=== PATIENT | female | born 2000 | race Caucasian/White ===

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

== ENCOUNTER 2020-07-29 16:55 | Emergency (ER) | payer OTHER ==
[2020-07-29 17:07] VITALS: BP 111/57; PULSE 69; TEMP 97.2; BMI 23.8
[2020-07-29] MEDS ORDERED: IBUPROFEN 600 MG TABLET (FP) PO ONE (17:43)
[2020-07-29] MEDS ORDERED: IBUPROFEN 400 MG TABLET (FP) PO ONE (17:45)
== END 2020-07-29 19:18 | disposition home or self-care (01) ==
LOC: JERFT 16:55
DX: S83.92XA Sprain of unspecified site of left knee, initial encounter (principal)
CPT/HCPCS: 73562-TC-LT-FY; 99283-25

== ENCOUNTER 2020-08-19 16:40 | Emergency (ER) | payer OTHER ==
[2020-08-19 16:53] VITALS: BP 103/69; PULSE 68; TEMP 97.6; BMI 23.8
[2020-08-19 18:16] LABS: PH,URINE 5.5 (5.0-8.0); URINE APPEARANCE CLEAR; URINE BILIRUBIN NEGATIVE (NEGATIVE); URINE COLOR YELLOW; URINE GLUCOSE (UA) NEGATIVE (NEGATIVE); URINE KETONE NEGATIVE (NEGATIVE); URINE LEUK ESTERASE NEGATIVE (NEGATIVE); URINE NITRITE NEGATIVE (NEGATIVE); URINE PROTEIN NEGATIVE (NEGATIVE); URINE UROBILINOGEN 0.2 mg/dL (0.2-1.0)
[2020-08-19 18:19] LABS: HCG,QUALITATIVE URINE Negative
[2020-08-19] MEDS ORDERED: KETOROLAC TROMETHAMINE 30 MG/1 ML VIAL IM ONE (18:22)
[2020-08-19] MEDS ORDERED: LIDOCAINE 5% TOPICAL PATCH TP ONE (18:23)
[2020-08-19] MEDS ORDERED: KETOROLAC TROMETHAMINE 30 MG/1 ML VIAL ONE (18:23)
[2020-08-19] MEDS ORDERED: LIDOCAINE 5% TOPICAL PATCH ONE (18:23)
[2020-08-19] MEDS ORDERED: LIDOCAINE PATCH REMOVAL MC SCH (22:00)
== END 2020-08-19 18:29 | disposition home or self-care (01) ==
LOC: JER 16:40 → JERFT 16:40
PROC: 3E0233Z Introduction of Anti-inflammatory into Muscle, Percutaneous Approach (ICD-10-PCS; principal; 2020-08-19)
DX: M54.42 Lumbago with sciatica, left side (principal)
CPT/HCPCS: 81003; 84703; 87077; 87086; 99284-25

== ENCOUNTER 2021-12-29 07:47 | Emergency (ER) | payer OTHER ==
[2021-12-29 08:00] VITALS: RESP 16; BMI 25.6
[2021-12-29] MEDS ORDERED: DEXTROSE 5%-LACTATED RINGERS 500 ML IV ONE ×2 (08:00→08:30)
[2021-12-29] MEDS ORDERED: ACETAMINOPHEN 1000 MG/100 ML BAG IVPB ONE (08:00)
[2021-12-29] MEDS ORDERED: ACETAMINOPHEN INJECTION 100 ML IVPB ONE (08:45)
[2021-12-29 09:03] LABS: BASO % 0.3 % (0-2.0); EOS % 0.6 % (0-4.5); HEMATOCRIT 32.8 % (32.4-45.2); HEMOGLOBIN 11.7 GM/dL (10.7-15.3); LYMPH % 23.3 % (8-40); MCH 30.5 pg (25.7-33.7); MCHC 35.6 g/dl (32.0-36.0); MEAN CELL VOLUME 85.6 fl (80-96); MEAN PLT VOLUME 7.9 fl (7.5-11.1); MONO % 4.7 % (3.8-10.2); NEUT % 71.1 % (42.8-82.8); PLATELET COUNT 253 10^3/uL (134-434); RBC 3.84 M/mm3 (3.60-5.2); RDW 14.5 % (11.6-15.6); WHITE BLOOD COUNT 6.4 K/mm3 (4.0-10.0)
[2021-12-29 09:22] LABS: ALBUMIN 2.8 g/dl (3.4-5.0); BLOOD UREA NITROGEN 5.2 mg/dL (7-18); CALCIUM 8.2 mg/dL (8.5-10.1)
[2021-12-29 09:25] LABS: CREATININE 0.4 mg/dL (0.55-1.3)
[2021-12-29 09:27] LABS: BILIRUBIN,TOTAL 0.2 mg/dL (0.2-1); TOT PROT 6.2 g/dl (6.4-8.2)
[2021-12-29 09:44] LABS: URINE APPEARANCE CLEAR; URINE BILIRUBIN NEGATIVE (NEGATIVE); URINE COLOR YELLOW; URINE GLUCOSE (UA) NEGATIVE (NEGATIVE); URINE KETONE NEGATIVE (NEGATIVE); URINE LEUK ESTERASE NEGATIVE (NEGATIVE); URINE NITRITE NEGATIVE (NEGATIVE); URINE PROTEIN NEGATIVE (NEGATIVE); URINE UROBILINOGEN 0.2 mg/dL (0.2-1.0)
[2021-12-29 10:53] VITALS: PULSE 81; TEMP 97.8
[2021-12-29 11:23] VITALS: BP 114/53
== END 2021-12-29 18:27 | disposition home or self-care (01) ==
LOC: JER 07:47
PROC: 3E033NZ Introduction of Analgesics, Hypnotics, Sedatives into Peripheral Vein, Percutaneous Approach (ICD-10-PCS; principal; 2021-12-29)
PROC: 3E0337Z Introduction of Electrolytic and Water Balance Substance into Peripheral Vein, Percutaneous Approach (ICD-10-PCS; 2021-12-29)
PROC: 3E0337Z Introduction of Electrolytic and Water Balance Substance into Peripheral Vein, Percutaneous Approach (ICD-10-PCS; 2021-12-29)
PROC: 3E0337Z Introduction of Electrolytic and Water Balance Substance into Peripheral Vein, Percutaneous Approach (ICD-10-PCS; 2021-12-29)
PROC: 3E0337Z Introduction of Electrolytic and Water Balance Substance into Peripheral Vein, Percutaneous Approach (ICD-10-PCS; 2021-12-29)
PROC: 3E0337Z Introduction of Electrolytic and Water Balance Substance into Peripheral Vein, Percutaneous Approach (ICD-10-PCS; 2021-12-29)
DX: O26.892 Other specified pregnancy related conditions, second trimester (principal); R10.9 Unspecified abdominal pain; Z3A.24 24 weeks gestation of pregnancy
CPT/HCPCS: 36415; 76775-TC; 76817-TC; 80053; 81003; 85025; 87077; 87086; 99284-25

== ENCOUNTER 2022-04-10 21:50 | Observation (INO) | payer OTHER ==
[2022-04-10 21:46] LABS: BASO % 0.4 % (0-2.0); EOS % 0.3 % (0-4.5); HEMATOCRIT 33.8 % (32.4-45.2); HEMOGLOBIN 11.3 GM/dL (10.7-15.3); LYMPH % 15.5 % (8-40); MCH 28.8 pg (25.7-33.7); MCHC 33.5 g/dl (32.0-36.0); MEAN CELL VOLUME 85.8 fl (80-96); MONO % 5.2 % (3.8-10.2); NEUT % 78.6 % (42.8-82.8); PLATELET COUNT 218 10^3/uL (134-434); RBC 3.94 M/mm3 (3.60-5.2); RDW 17.2 % (11.6-15.6); WHITE BLOOD COUNT 9.5 K/mm3 (4.0-10.0)
[~2022-04-10 21:50] MED LIST: ACETAMINOPHEN INJECTION 100 ML IVPB ONE
[2022-04-10 21:54] LABS: INR 0.91 (0.83-1.09); PROTHROMBIN TIME (PATIENT) 10.5 SEC (9.7-13.0)
[2022-04-10 21:57] LABS: ACTIVATED PTT 26.5 SECONDS (25.2-36.5)
[2022-04-10] MEDS ORDERED: ACETAMINOPHEN 1000 MG/100 ML BAG IVPB ONE (22:00)
[2022-04-10] MEDS ORDERED: ELECTROLYTE-148 SOLN 1,000 ML IV ONE (22:00)
[2022-04-10 22:07] LABS: ALBUMIN 2.6 g/dl (3.4-5.0); BLOOD UREA NITROGEN 8.2 mg/dL (7-18); CALCIUM 7.9 mg/dL (8.5-10.1)
[2022-04-10 22:11] LABS: CREATININE 0.5 mg/dL (0.55-1.3)
[2022-04-10 22:12] LABS: BILIRUBIN,TOTAL 0.2 mg/dL (0.2-1); TOT PROT 5.9 g/dl (6.4-8.2)
[2022-04-10] MEDS ORDERED: ELECTROLYTE-148 SOLN 1,000 ML IV SCH (22:30)
[2022-04-10] MEDS: OSELTAMIVIR PHOSPHATE 75 MG CAPSULE PO SCH (23:00)
[2022-04-11 01:47] VITALS: BMI 28.1
[2022-04-11] MEDS ORDERED: ACETAMINOPHEN 325 MG TABLET (FP) PO PRN (04:00)
[2022-04-11] MEDS: OSELTAMIVIR PHOSPHATE 75 MG CAPSULE PO SCH (10:26)
[2022-04-11 15:02] VITALS: BP 104/54; PULSE 74; RESP 18; TEMP 97.8
== END 2022-04-11 16:10 | disposition home or self-care (01) ==
LOC: UNDOADMIN 21:50 → JLDR 21:50 → JDEL 21:50 → JLDR 21:51
PROVIDERS: ADMIT Student in an Organized Health Care Education/Training Program; ATTEND Student in an Organized Health Care Education/Training Program
CPT/HCPCS: 0241U-QW; 36415; 80053; 85025; 85610; 85730; 86780; 86850; 86900; 86901; 87040; 96365; 96366; 96375; G0378

== ENCOUNTER 2022-04-16 22:10 | Inpatient (IN) | payer OTHER ==
[2022-04-16] MEDS ORDERED: AMPICILLIN SODIUM 2 GM VIAL ONE (22:32)
[2022-04-16] MEDS ORDERED: AMPICILLIN - 2 GM in SODIUM CHLORIDE 100 ML IVPB ONE (22:34)
[2022-04-16] MEDS ORDERED: ELECTROLYTE-148 SOLN 1,000 ML IV SCH (22:45)
[2022-04-16 23:08] LABS: BASO % 0.2 % (0-2.0); EOS % 0.5 % (0-4.5); HEMATOCRIT 33.8 % (32.4-45.2); HEMOGLOBIN 11.3 GM/dL (10.7-15.3); LYMPH % 20.5 % (8-40); MCH 28.8 pg (25.7-33.7); MCHC 33.6 g/dl (32.0-36.0); MEAN CELL VOLUME 85.7 fl (80-96); MEAN PLT VOLUME 8.2 fl (7.5-11.1); MONO % 5.9 % (3.8-10.2); NEUT % 72.9 % (42.8-82.8); PLATELET COUNT 290 10^3/uL (134-434); RBC 3.94 M/mm3 (3.60-5.2); RDW 17.2 % (11.6-15.6); WHITE BLOOD COUNT 8.7 K/mm3 (4.0-10.0)
[2022-04-16 23:13] LABS: INR 0.95 (0.83-1.09); PROTHROMBIN TIME (PATIENT) 10.9 SEC (9.7-13.0)
[2022-04-16 23:16] LABS: ACTIVATED PTT 27.1 SECONDS (25.2-36.5)
[2022-04-16 23:29] LABS: CALCIUM 8.2 mg/dL (8.5-10.1)
[2022-04-16 23:30] LABS: BLOOD UREA NITROGEN 9.5 mg/dL (7-18)
[2022-04-16 23:33] LABS: CREATININE 0.6 mg/dL (0.55-1.3)
[2022-04-16] MEDS ORDERED: FENTANYL/BUPIVACAINE/NS/PF - PCEA - 50 ML DISP.SYRIN EP ONE (23:33)
[2022-04-16] MEDS ORDERED: BUPIVACAINE HCL/PF 0.25% (2.5MG/ML) 10 ML VIAL ONE (23:34)
[2022-04-17] MEDS ORDERED: NALOXONE HCL 0.4 MG/ML VIAL IVPUSH PRN (00:06)
[2022-04-17] MEDS ORDERED: FENTANYL/BUPIVACAINE/NS/PF - PCEA - 50 ML DISP.SYRIN EP SCH ×2 (00:15→00:44)
[2022-04-17 00:21] VITALS: BMI 26.2
[2022-04-17 00:32] LABS: HIV INTERPRETATION NEGATIVE (NEGATIVE)
[2022-04-17] MEDS ORDERED: AMPICILLIN SODIUM 1 GM VIAL ONE ×2 (01:56→06:09)
[2022-04-17] MEDS: AMPICILLIN - 1 GM in SODIUM CHLORIDE 100 ML IVPB SCH ×4 (02:05→15:22)
[2022-04-17] MEDS ORDERED: FENTANYL/BUPIVACAINE/NS/PF - PCEA - 50 ML DISP.SYRIN EP ONE (03:56)
[2022-04-17] MEDS ORDERED: OXYTOCIN 20 UNITS in 0.9% NS 20 UNIT/1,000 ML INFUS.BAG IV ONE ×2 (07:13→08:53)
[2022-04-17] MEDS ORDERED: BISACODYL 10 MG SUPP.RECT RC PRN (07:44)
[2022-04-17] MEDS ORDERED: WITCH HAZEL 50% (TUCKS) 40 PAD/JAR PAD TP PRN (07:44)
[2022-04-17] MEDS ORDERED: BENZOCAINE 28 GM HEMORRHOIDAL OINTMENT TP PRN (07:44)
[2022-04-17] MEDS ORDERED: METHYLERGONOVINE MALEATE 0.2 MG/1 ML AMP IM PRN (07:44)
[2022-04-17] MEDS ORDERED: ACETAMINOPHEN 325 MG TABLET (FP) PO PRN (07:44)
[2022-04-17] MEDS: OXYTOCIN 20 UNITS in 0.9% NS 20 UNIT/1,000 ML INFUS.BAG IV SCH ×2 (07:45→09:02)
[2022-04-17] MEDS: IBUPROFEN 600 MG TABLET (FP) PO PRN (09:01)
[2022-04-17] MEDS ORDERED: IBUPROFEN 600 MG TABLET (FP) PO ONE (09:02)
[2022-04-17] MEDS: PRENATAL VITAMINS W/ FOLIC ACID TABLET (FP) PO SCH (10:22)
[2022-04-17 20:46] VITALS: RESP 18
[2022-04-18] MEDS: IBUPROFEN 600 MG TABLET (FP) PO PRN ×2 (01:21→20:05)
[2022-04-18] MEDS: PRENATAL VITAMINS W/ FOLIC ACID TABLET (FP) PO SCH (09:56)
[2022-04-18 10:37] LABS: BASO % 0.5 % (0-2.0); EOS % 0.8 % (0-4.5); HEMATOCRIT 30.8 % (32.4-45.2); HEMOGLOBIN 10.4 GM/dL (10.7-15.3); LYMPH % 27.9 % (8-40); MCH 29.2 pg (25.7-33.7); MCHC 33.7 g/dl (32.0-36.0); MEAN CELL VOLUME 86.6 fl (80-96); MEAN PLT VOLUME 8.4 fl (7.5-11.1); NEUT % 65.8 % (42.8-82.8); PLATELET COUNT 274 10^3/uL (134-434); RBC 3.56 M/mm3 (3.60-5.2); RDW 17.2 % (11.6-15.6); WHITE BLOOD COUNT 9.1 K/mm3 (4.0-10.0)
[2022-04-18] MEDS ORDERED: FLU VACC QS2022-23(6MOS UP)/PF 60 MCG/0.5 ML SYRINGE IM ONE (12:00)
[2022-04-18] MEDS ORDERED: SENNOSIDES/DOCUSATE COMBO (SENNA PLUS) TABLET (UD) PO PRN (22:00)
[2022-04-19] MEDS: IBUPROFEN 600 MG TABLET (FP) PO PRN (06:18)
[2022-04-19 08:39] VITALS: BP 120/71; PULSE 66; TEMP 98.6
[2022-04-19] MEDS: PRENATAL VITAMINS W/ FOLIC ACID TABLET (FP) PO SCH (10:06)
== END 2022-04-19 12:20 | disposition home or self-care (01) | DRG 560 ==
LOC: JLDR 22:10 → J3W 04-17 09:54
PROVIDERS: ADMIT Obstetrics & Gynecology; ATTEND Obstetrics & Gynecology
PROC: 10E0XZZ Delivery of Products of Conception, External Approach (ICD-10-PCS; principal; 2022-04-17)
PROC: 10907ZC Drainage of Amniotic Fluid, Therapeutic from Products of Conception, Via Natural or Artificial Opening (ICD-10-PCS; 2022-04-17)
DX: O99.824 Streptococcus B carrier state complicating childbirth (principal); Z3A.39 39 weeks gestation of pregnancy; Z37.0 Single live birth
CPT/HCPCS: 36415; 59409; 80048; 85025; 85610; 85730; 86780; 86850; 86900; 86901; 87389; C9803-CS; G0008; Q2036; U0003; U0005

== ENCOUNTER 2022-05-11 14:27 | Emergency (ER) | payer OTHER ==
[2022-05-11 14:32] VITALS: BP 121/84; PULSE 99; RESP 18; BMI 25.6
[2022-05-11] MEDS ORDERED: ACETAMINOPHEN 1000 MG/100 ML BAG IVPB ONE (16:24)
[2022-05-11] MEDS ORDERED: ACETAMINOPHEN INJECTION 100 ML IVPB ONE (16:31)
[2022-05-11 17:57] LABS: BASO % 0.5 % (0-2.0); EOS % 0.1 % (0-4.5); HEMOGLOBIN 12.3 GM/dL (10.7-15.3); LYMPH % 12.4 % (8-40); MCHC 32.3 g/dl (32.0-36.0); MEAN CELL VOLUME 86.5 fl (80-96); MEAN PLT VOLUME 8.5 fl (7.5-11.1); MONO % 7.1 % (3.8-10.2); NEUT % 79.9 % (42.8-82.8); PLATELET COUNT 262 10^3/uL (134-434); RBC 4.39 M/mm3 (3.60-5.2); RDW 16.4 % (11.6-15.6); WHITE BLOOD COUNT 12.5 K/mm3 (4.0-10.0)
[2022-05-11 18:20] LABS: CALCIUM 8.5 mg/dL (8.5-10.1)
[2022-05-11 18:22] LABS: ALBUMIN 3.4 g/dl (3.4-5.0); BLOOD UREA NITROGEN 9.8 mg/dL (7-18)
[2022-05-11 18:24] LABS: CREATININE 0.6 mg/dL (0.55-1.3)
[2022-05-11 18:27] LABS: BILIRUBIN,TOTAL 0.3 mg/dL (0.2-1); TOT PROT 7.2 g/dl (6.4-8.2)
[2022-05-11] MEDS ORDERED: CEPHALEXIN MONOHYDRATE 500 MG CAPSULE (UD) PO ONE (18:48)
[2022-05-11] MEDS ORDERED: CEPHALEXIN MONOHYDRATE 500 MG CAPSULE (UD) ONE (18:52)
[2022-05-11] MEDS ORDERED: KETOROLAC TROMETHAMINE 30 MG/1 ML VIAL IVPUSH ONE (18:54)
[2022-05-11] MEDS ORDERED: KETOROLAC TROMETHAMINE 15 MG/ML VIAL ONE (18:55)
[2022-05-11 19:37] VITALS: TEMP 98.2
== END 2022-05-11 21:50 | disposition home or self-care (01) ==
LOC: JERFT 14:27
PROC: 3E033GC Introduction of Other Therapeutic Substance into Peripheral Vein, Percutaneous Approach (ICD-10-PCS; principal; 2022-05-11)
DX: N61.0 Mastitis without abscess (principal)
CPT/HCPCS: 0241U-QW; 36415; 76642-TC-RT; 80053; 85025; 99284-25

== ENCOUNTER 2022-09-11 02:29 | Emergency (ER) | payer OTHER ==
[2022-09-11 02:38] VITALS: BMI 24.7
[2022-09-11] MEDS ORDERED: SODIUM CHLORIDE 0.9% 500 ML INFUS.BAG IV ONE ×2 (03:02→03:03)
[2022-09-11] MEDS ORDERED: ACETAMINOPHEN 1000 MG/100 ML BAG IVPB ONE (03:02)
[2022-09-11] MEDS ORDERED: FAMOTIDINE 20 MG/50 ML IVPB 20 MG/50 ML MG IVPB ONE ×2 (03:02→03:19)
[2022-09-11] MEDS ORDERED: MAG HYDROX/AL HYDROX/SIMETH 30 ML UNIT-DOSE CUP PO ONE (03:02)
[2022-09-11] MEDS ORDERED: ACETAMINOPHEN INJECTION 100 ML IVPB ONE (03:19)
[2022-09-11] MEDS ORDERED: MAG HYDROX/AL HYDROX/SIMETH 30 ML UNIT-DOSE CUP ONE (03:19)
[2022-09-11 04:26] LABS: BASO % 0.4 % (0-2.0); EOS % 0.6 % (0-4.5); HEMATOCRIT 38.7 % (32.4-45.2); HEMOGLOBIN 13.2 GM/dL (10.7-15.3); MCH 28.6 pg (25.7-33.7); MEAN CELL VOLUME 83.9 fl (80-96); MEAN PLT VOLUME 8.2 fl (7.5-11.1); MONO % 6.5 % (3.8-10.2); NEUT % 70.5 % (42.8-82.8); PLATELET COUNT 296 10^3/uL (134-434); RBC 4.61 M/mm3 (3.60-5.2); RDW 13.1 % (11.6-15.6); WHITE BLOOD COUNT 5.4 K/mm3 (4.0-10.0)
[2022-09-11 04:29] LABS: EPI CELLS 10 /uL (0-25.1); HYALINE CASTS 1 /uL (0-3.1); PH,URINE 5.5 (5.0-8.0); URINE APPEARANCE CLEAR; URINE BACTERIA 30 /uL (0-1359); URINE BILIRUBIN NEGATIVE (NEGATIVE); URINE COLOR YELLOW; URINE GLUCOSE (UA) NEGATIVE (NEGATIVE); URINE KETONE NEGATIVE (NEGATIVE); URINE LEUK ESTERASE TRACE (NEGATIVE); URINE NITRITE NEGATIVE (NEGATIVE); URINE PROTEIN NEGATIVE (NEGATIVE); URINE RBC 1245 /uL (0-23.9); URINE UROBILINOGEN 0.2 mg/dL (0.2-1.0); URINE WBC 37 /uL (0-25.8)
[2022-09-11 04:47] LABS: CALCIUM 8.8 mg/dL (8.5-10.1)
[2022-09-11 04:48] LABS: BLOOD UREA NITROGEN 8.1 mg/dL (7-18)
[2022-09-11 04:50] LABS: CREATININE 0.6 mg/dL (0.55-1.3)
[2022-09-11 04:52] LABS: BILIRUBIN,TOTAL 0.5 mg/dL (0.2-1); TOT PROT 7.8 g/dl (6.4-8.2)
[2022-09-11 06:00] VITALS: BP 99/52; PULSE 60; RESP 16; TEMP 97.9
== END 2022-09-11 06:59 | disposition home or self-care (01) ==
LOC: JER 02:29
PROC: 3E033GC Introduction of Other Therapeutic Substance into Peripheral Vein, Percutaneous Approach (ICD-10-PCS; principal; 2022-09-11)
PROC: 3E033NZ Introduction of Analgesics, Hypnotics, Sedatives into Peripheral Vein, Percutaneous Approach (ICD-10-PCS; 2022-09-11)
DX: R10.13 Epigastric pain (principal); R19.7 Diarrhea, unspecified; Z20.822 Contact with and (suspected) exposure to COVID-19
CPT/HCPCS: 0241U-QW; 36415; 80053; 81003; 83690; 84703; 85025; 87086; 99284-25

== ENCOUNTER 2022-12-27 18:39 | Emergency (ER) | payer OTHER ==
[2022-12-27 18:51] VITALS: BP 100/62; PULSE 70; RESP 18; TEMP 98.5; BMI 24.7
[2022-12-27 21:39] LABS: PH,URINE 5.5 (5.0-8.0); URINE APPEARANCE CLEAR; URINE BILIRUBIN NEGATIVE (NEGATIVE); URINE COLOR YELLOW; URINE GLUCOSE (UA) NEGATIVE (NEGATIVE); URINE KETONE TRACE (NEGATIVE); URINE LEUK ESTERASE NEGATIVE (NEGATIVE); URINE NITRITE NEGATIVE (NEGATIVE); URINE PROTEIN NEGATIVE (NEGATIVE)
== END 2022-12-27 23:49 | disposition home or self-care (01) ==
LOC: JERFT 18:39 → JER 18:39 → JERFT 23:49
DX: J02.0 Streptococcal pharyngitis (principal); J20.8 Acute bronchitis due to other specified organisms; B34.9 Viral infection, unspecified; M79.10 Myalgia, unspecified site; R68.83 Chills (without fever); Z20.822 Contact with and (suspected) exposure to COVID-19
CPT/HCPCS: 0241U-QW; 81003; 87070; 87086; 87651; 99283-25

== ENCOUNTER 2023-08-26 08:47 | Emergency (ER) | payer OTHER ==
[2023-08-26 08:53] VITALS: BMI 24.7
[2023-08-26] MEDS ORDERED: PYRIDOXINE HCL (B-6) 50 MG TABLET (FP) PO SCH (10:00)
[2023-08-26] MEDS ORDERED: ACETAMINOPHEN INJECTION 100 ML IVPB ONE (10:13)
[2023-08-26 10:18] LABS: PH,URINE 5.5 (5.0-8.0); URINE APPEARANCE CLEAR; URINE BILIRUBIN NEGATIVE (NEGATIVE); URINE COLOR YELLOW; URINE GLUCOSE (UA) NEGATIVE (NEGATIVE); URINE KETONE NEGATIVE (NEGATIVE); URINE LEUK ESTERASE NEGATIVE (NEGATIVE); URINE NITRITE NEGATIVE (NEGATIVE); URINE PROTEIN NEGATIVE (NEGATIVE); URINE UROBILINOGEN 0.2 mg/dL (0.2-1.0)
[2023-08-26] MEDS: FAMOTIDINE 20 MG/50 ML IVPB 20 MG/50 ML MG IVPB ONE (10:25)
[2023-08-26] MEDS: ACETAMINOPHEN 1000 MG/100 ML BAG IVPB ONE (10:25)
[2023-08-26 10:31] LABS: BASO % 0.6 % (0-2.0); EOS % 1.5 % (0-4.5); HEMATOCRIT 39.3 % (32.4-45.2); HEMOGLOBIN 13.7 GM/dL (10.7-15.3); LYMPH % 27.3 % (8-40); MEAN CELL VOLUME 85.8 fl (80-96); MEAN PLT VOLUME 7.6 fl (7.5-11.1); MONO % 4.8 % (3.8-10.2); NEUT % 65.8 % (42.8-82.8); PLATELET COUNT 282 10^3/uL (134-434); RBC 4.57 M/mm3 (3.60-5.2); RDW 13.8 % (11.6-15.6); WHITE BLOOD COUNT 7.2 K/mm3 (4.0-10.0)
[2023-08-26] MEDS: PYRIDOXINE HCL (B-6) 50 MG TABLET (FP) PO ONE (10:36)
[2023-08-26 10:57] LABS: POTASSIUM 4.2 mmol/L (3.5-5.1)
[2023-08-26 10:59] LABS: CALCIUM 8.8 mg/dL (8.5-10.1)
[2023-08-26 11:00] LABS: ALBUMIN 3.6 g/dl (3.4-5.0); BLOOD UREA NITROGEN 9.7 mg/dL (7-18)
[2023-08-26 11:03] LABS: CREATININE 0.4 mg/dL (0.55-1.3)
[2023-08-26 11:04] LABS: BILIRUBIN,TOTAL 0.3 mg/dL (0.2-1)
[2023-08-26 11:05] LABS: TOT PROT 7.1 g/dl (6.4-8.2)
[2023-08-26 14:10] VITALS: BP 101/50; PULSE 60; RESP 20; TEMP 98.1
== END 2023-08-26 14:39 | disposition home or self-care (01) ==
LOC: JER 08:47
PROC: 3E033GC Introduction of Other Therapeutic Substance into Peripheral Vein, Percutaneous Approach (ICD-10-PCS; principal; 2023-08-26)
PROC: 3E033NZ Introduction of Analgesics, Hypnotics, Sedatives into Peripheral Vein, Percutaneous Approach (ICD-10-PCS; 2023-08-26)
DX: O26.891 Other specified pregnancy related conditions, first trimester (principal); R10.84 Generalized abdominal pain; R11.0 Nausea; R63.0 Anorexia; O26.811 Pregnancy related exhaustion and fatigue, first trimester; Z20.822 Contact with and (suspected) exposure to COVID-19
CPT/HCPCS: 0241U-QW; 36415; 76817-TC; 80053; 81003; 83690; 84702; 85025; 87086; 99284-25; J0131

== ENCOUNTER 2024-04-09 06:00 | Inpatient (IN) | payer OTHER ==
[2024-04-09] MEDS: ELECTROLYTE-148 SOLN 1,000 ML IV SCH (06:05)
[2024-04-09] MEDS: OXYTOCIN 20 UNITS in 0.9% NS 20 UNIT/1,000 ML INFUS.BAG IV SCH (06:25)
[2024-04-09] MEDS ORDERED: MISOPROSTOL 200 MCG TABLET ONE (06:26)
[2024-04-09] MEDS: MISOPROSTOL 200 MCG TABLET PR ONE (06:30)
[2024-04-09] MEDS ORDERED: ceFAZolin SODIUM 1 GM VIAL ONE (06:37)
[2024-04-09] MEDS ORDERED: ACETAMINOPHEN INJECTION 100 ML ONE (06:38)
[2024-04-09] MEDS ORDERED: METHYLERGONOVINE MALEATE 0.2 MG/1 ML AMP IM PRN (06:49)
[2024-04-09] MEDS ORDERED: ACETAMINOPHEN 325 MG TABLET (FP) PO PRN (06:49)
[2024-04-09] MEDS ORDERED: BENZOCAINE 28 GM HEMORRHOIDAL OINTMENT TP PRN (06:49)
[2024-04-09] MEDS ORDERED: BISACODYL 10 MG SUPP.RECT RC PRN (06:49)
[2024-04-09] MEDS: CEFAZOLIN SODIUM 2 GM in DEXTROSE 5%-WATER 100 ML IVPB ONE (06:50)
[2024-04-09] MEDS: ACETAMINOPHEN 1000 MG/100 ML BAG IVPB ONE (06:50)
[2024-04-09 07:27] VITALS: BMI 31.1
[2024-04-09] MEDS: IBUPROFEN 600 MG TABLET (FP) PO PRN (07:55)
[2024-04-09 08:14] LABS: BASO % 0.2 % (0-2.0); EOS % 0.3 % (0-4.5); HEMATOCRIT 38.1 % (32.4-45.2); HEMOGLOBIN 13.3 GM/dL (10.7-15.3); LYMPH % 9.5 % (8-40); MCH 31.7 pg (25.7-33.7); MCHC 34.9 g/dl (32.0-36.0); MEAN CELL VOLUME 90.9 fl (80-96); MEAN PLT VOLUME 8.6 fl (7.5-11.1); MONO % 3.3 % (3.8-10.2); NEUT % 86.7 % (42.8-82.8); PLATELET COUNT 226 10^3/uL (134-434); RBC 4.19 M/mm3 (3.60-5.2); RDW 13.7 % (11.6-15.6); WHITE BLOOD COUNT 10.7 K/mm3 (4.0-10.0)
[2024-04-09 08:15] LABS: INR 0.89 (0.83-1.09); PROTHROMBIN TIME (PATIENT) 10.1 SEC (9.7-13.0)
[2024-04-09 08:18] LABS: ACTIVATED PTT 24.6 SECONDS (25.2-36.5)
[2024-04-09 08:20] LABS: CALCIUM 8.8 mg/dL (8.5-10.1)
[2024-04-09 08:21] LABS: BLOOD UREA NITROGEN 7.5 mg/dL (7-18)
[2024-04-09 08:24] LABS: CREATININE 0.6 mg/dL (0.55-1.3)
[2024-04-09] MEDS ORDERED: OXYTOCIN 20 UNITS in 0.9% NS 20 UNIT/1,000 ML INFUS.BAG IV ONE (09:46)
[2024-04-09] MEDS: BENZOCAINE 20% 57 GM BOTTLE TP PRN (14:41)
[2024-04-09] MEDS: WITCH HAZEL 50% (TUCKS) 40 PAD/JAR PAD TP PRN (14:41)
[2024-04-10 08:27] LABS: BASO % 0.5 % (0-2.0); EOS % 0.5 % (0-4.5); HEMATOCRIT 31.3 % (32.4-45.2); HEMOGLOBIN 10.7 GM/dL (10.7-15.3); LYMPH % 24.4 % (8-40); MCH 31.7 pg (25.7-33.7); MCHC 34.3 g/dl (32.0-36.0); MEAN CELL VOLUME 92.5 fl (80-96); MEAN PLT VOLUME 8.5 fl (7.5-11.1); MONO % 4.9 % (3.8-10.2); NEUT % 69.7 % (42.8-82.8); PLATELET COUNT 197 10^3/uL (134-434); RBC 3.38 M/mm3 (3.60-5.2); RDW 13.5 % (11.6-15.6)
[2024-04-10] MEDS ORDERED: SENNOSIDES/DOCUSATE COMBO (SENNA PLUS) TABLET (UD) PO PRN (22:00)
[2024-04-11 12:18] VITALS: BP 115/60; PULSE 69; RESP 17; TEMP 97.4
== END 2024-04-11 12:20 | disposition home or self-care (01) | DRG 560 ==
LOC: JLDR 06:00 → J3W 10:00
PROVIDERS: ADMIT Obstetrics & Gynecology Obstetrics; ATTEND Obstetrics & Gynecology Obstetrics
PROC: 10E0XZZ Delivery of Products of Conception, External Approach (ICD-10-PCS; principal; 2024-04-09)
DX: O80 Encounter for full-term uncomplicated delivery (principal); Z37.0 Single live birth; Z3A.40 40 weeks gestation of pregnancy
CPT/HCPCS: 36415; 59409; 80048; 85025; 85610; 85730; 86762; 86850; 86900; 86901; 87340; J0131